=== PATIENT | male | born 1945 | race Caucasian/White ===

== ENCOUNTER 2021-08-12 08:49 | Outpatient (REF) | payer MEDICARE, SELFPAY | END 2021-08-12 08:50 | disposition home or self-care (01) | LOC: HO.BBR 08:49 | PROVIDERS: Visit Provider Internal Medicine | DX: D45 Polycythemia vera (principal) | CPT/HCPCS: 85018; 99195 ==

== ENCOUNTER 2022-02-10 09:33 | Outpatient (REF) | payer MEDICARE, SELFPAY | END 2022-02-10 09:34 | disposition home or self-care (01) | LOC: HO.BBR 09:33 | PROVIDERS: Visit Provider Internal Medicine | DX: D45 Polycythemia vera (principal) | CPT/HCPCS: 85014; 85018; 99195 ==

== ENCOUNTER 2023-03-20 09:52 | Outpatient (REF) | payer MEDICARE, SELFPAY | END 2023-03-20 09:53 | disposition home or self-care (01) | LOC: HO.BBR 09:52 | PROVIDERS: Visit Provider Internal Medicine | DX: D75.1 Secondary polycythemia (principal) | CPT/HCPCS: 85014; 85018; 99195 ==

== ENCOUNTER 2024-01-11 10:55 | Outpatient (REF) | payer MEDICARE, SELFPAY | END 2024-01-11 10:56 | disposition home or self-care (01) | LOC: HO.BBR 10:55 | PROVIDERS: Visit Provider Internal Medicine | DX: D75.1 Secondary polycythemia (principal) | CPT/HCPCS: 85018; 99195 ==

== ENCOUNTER 2024-07-16 10:59 | Outpatient (REF) | payer MEDICARE, SELFPAY | END 2024-07-16 11:00 | disposition home or self-care (01) | LOC: HO.BBR 10:59 | PROVIDERS: Visit Provider Internal Medicine | DX: D75.1 Secondary polycythemia (principal) | CPT/HCPCS: 85014; 85018; 99195 ==

== ENCOUNTER 2025-01-14 10:47 | Outpatient (REF) | payer MEDICARE, SELFPAY ==
--- OUTSIDE RECORDS SUMMARY | 2025-01-14 12:12 | XMS_ITS | Clinical Summary ---
Author Organization [facility] Address [address] [place] [address] Phone Care Team Providers Care Sprayer Machine Name Role Phone Allie South MD Primary Care Provider Allergies No known active allergies Medications cholecalcifero l (VITAMIN D-3) 50 mcg (2,000 unit) tablet Take?by mouth. 3,000 units Active finasteride (PROSCAR) 5 mg tablet Take 1 Tablet by mouth daily. 3 Active furosemide (LASIX) 20 mg tablet Take 1 Tablet by mouth as needed (for weight gain and sob). PRN 3 Active metoprolol succinate (TOPROL-XL) 100 mg 24 hr tablet Take 1 tablet (100 mg total) by mouth 1 (one) time each day. 90 tablet 1 4 Active alendronate (FOSAMAX) 70 mg tablet Take 1 tablet (70 mg total) by mouth every 7 (seven) days. TAKE ONE TABLET BY MOUTH EVERY 7 DAYS 12 each 1 4 Active Jantoven 5 mg tablet TAKE ONE TABLET BY MOUTH ONCE DAILY . MAY CAUSE HEAVY BLEEDING, TAKE AT SAME TIME EVERY DAY, DO NOT CHANGE DIETARY HABITSTAKE ONE TABLET BY MOUTH ONCE DAILY . MAY CAUSE HEAVY BLEEDING, TAKE AT SAME TIME EVERY DAY, DO NOT CHANGE DIETARY HABITS 90 tablet 1 4 Active albuterol HFA (ProAir HFA) 90 mcg/actuation inhaler Inhale 2 puffs by mouth every 4 (four) hours if needed for wheezing or shortness of breath. 8.5 g 1 4 Active fluticasone-um eclidinium-norman anterol (Trelegy Ellipta) 100-62.5-25 mcg inhaler Inhale 1 puff (100 mcg total) by mouth 1 (one) time each day. Rinse mouth with water after use to reduce aftertaste and incidence of candidiasis. Do not swallow. 1 each 12 4 08/14/20 25 Active lisinopriL (PRINIVIL,ZEST RIL) 20 mg tablet Take 1 tablet (20 mg total) by mouth 1 (one) time each day. Take 1 Tablet by mouth daily. 90 tablet 5 Active lisinopriL (PRINIVIL,ZEST RIL) 20 mg tablet Take 1 Tablet by mouth daily. 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 Started on nocturnal O2 in 02/2021 by Osteoporosis 12/27/2016 Overview (05/27/2024): Hip on bone density. Cardiomyopathy ([facility] V24, [facility] V28) 2016 Overview (05/27/2024): Last Assessment & Plan: Left ventricular ejection fraction is normal. Continue metoprolol and lisinopril. Heart failure with reduced e jection fraction, NYHA class II ([facility] V24, [facility] V28) 11/22/2016 Overview (05/27/2024): Stress perfusion test 08/2012 with EF 45% and nl perfusion Mild mitral regurgitation 11/17/2016 Overview (05/27/2024): On echo 10/27/2016 Compression fracture of L1 l umbar vertebra (CMS/HCC V24, CMS/HCC V28) 10/19/2016 Overview (05/27/2024): Post fall, 10/2016 Atrial fibrillation (CMS/HCC V24, CMS/HCC V28) 0 09/29/2016 Overview (05/27/2024): Last Assessment & Plan: Chronic A-fib, rate controlled on metoprolol, continue. Continue anticoagulation with warfarin with goal INR between 2 and 3. The risks and benefits of anticoagulation therapy have been reviewed. They verbalized understanding agree to continue. Hypertension 09/03/2012 Overview (05/27/2024): 08/2012 [facility] admission for hypertensive emergency, Nuclear Med stress test with exercise: LVEF 45%, no fixed or reversible ischemia. Max exercise 5.7 METS for 3.58 min. Repeat outpt echo 09/2012 shows normal systolic and diastolic function, trace TR 08/2012 [facility] admission for hypertensive emergency, Nuclear Med stress test with exercise: LVEF 45%, no fixed or reversible ischemia. Max exercise 5.7 METS for 3.58 min. Repeat outpt echo 09/2012 shows normal systolic and diastolic function, trace TR Encounters Date Type Department Care Team Description 01/01/2025 Anticoagulation - Warfarin Visit [facility] Clinic - [address] [phone] Allyssa Card LPN Longstanding persistent atrial fibrillation (CMS/HCC V24, CMS/HCC V28) (Primary Dx); ring sewer (current) use of anticoagulants 12/04/2024 Anticoagulation - Warfarin Visit Coumadin [address] [phone] Allyssa Card LPN Longstanding persistent atrial fibrillation (CMS/HCC V24, CMS/HCC V28) (Primary Dx); ring sewer (current) use of anticoagulants 11/07/2024 Anticoagulation - Warfarin Visit [facility] Clinic [address] [place] [phone] Allyssa Card LPN Longstanding persistent atrial fibrillation (CMS/HCC V24, CMS/HCC V28) (Primary Dx); ring sewer (current) use of anticoagulants from Last 3 Months Immunizations Name Administration Dates Next Due Pfizer SARS-CoV-2 COVID-19, mRNA, LNP-S, preservative free 11/12/2020,10/21/2020 Pneumococcal conjugate 20 va lent (Prevnar 20, PCV 20) 2mo and older 08/14/2024 Social History Tobacco Use Types Packs/Day Years Used Date Smoking Tobacco: Former Smokeless Tobacco: Never Alcohol Use Standard Drinks/Week Comments Yes 0 (1 standard drink = 0.6 oz pur e alcohol) Sex and Gender Information Value Date Recorded Sex Assigned at Not on file Legal Sex Male 1:43 PM EST Gender Identity Not on file Sexual Orientation Not on file Obstetrics History Last Filed Vital Signs Vital Sign Reading Time Taken Comments Blood Pressure 136/68 09/26/2024 9:34 AM EST Pulse 90 09/26/2024 9:34 AM EST Temperature 36.2 ??C (97.2 ??F) 09/26/2024 9:34 AM ES T Respiratory Rate 20 09/26/2024 9:34 AM EST Oxygen Saturation 95% 09/26/2024 9:34 AM EST Inhaled Oxygen Concentration - - Weight 94 kg (207 lb 3.2 oz) 09/26/2024 9:34 AM EST Height 177.8 cm (5' 10 ) 09/26/2024 9:34 AM EST Body Mass Index 29.73 09/26/2024 9:34 AM EST Plan of Treatment Upcoming Encounters Date Type Department Care Team (Late st Contact Info) Description 02/17/2025 2:00 PM EDT Office Visit Adult Medicine - [place] [address] [place] [phone] Allie South MD [address] [place], [place] 02/20/2025 10:30 AM EDT Office Visit [facility] Hematology Oncology [address] [place] [phone] Neela Jimenez MD [address] [place] [address] 03/27/2025 10:30 AM EDT Office Visit Pulmonolgy - [place] [address] [facility] [address] [place] [phone] Anil Laughlin MD [address] [facility] [address] [place] [address] Health Maintenance Due Date Last Done Comments Zoster Vaccines (1 of 2) 1964 RSV Immunization Adult Patients (1 - 1-dose 75+ series) 2022 Cholesterol Screening (Lipid Panel) 08/13/2022 Colorectal Cancer Screening: Stool Based Tests (FOBT/FIT) 08/13/2022 Depression Screening 08/13/2022 Falls Risk Assessment 08/13/2022 Hepatitis C Screening 08/13/2022 Medicare Annual Wellness Visit 08/13/2022 Social Influencers of Health Screening 08/13/2022 Hypertension/CHF/CAD Annual BMP Blood Test 08/14/2022 COVID-19 Vaccine (7 - Pfizer risk 2023- season) 2024 06/26/2024, 07/31/2023, 07/02/2022, Additional history exists Lung Cancer Screening (Low Dose CT) 03/15/2025 03/15/2024, 03/13/2024, 03/13/2023, Additional history exists DTaP,Tdap,and Td Vaccines (3 - Td or Tdap) 08/21/2033 08/21/2023, 05/28/2013 Influenza Vaccine Completed 06/26/2024, , 06/23/2022, Additional history exists Pneumococcal Vaccine: 50+ Years Completed 08/14/2024, 02/17/2017, 06/03/2013, Additional history exists HIB Vaccines Aged Out No longer eligi ble based on patient's age to complete this topic HPV Vaccines Aged Out No longer eligi ble based on patient's age to complete this topic Hepatitis A Vaccines Aged Out No long er eligible based on patient's age to complete this topic Hepatitis B Vaccines Aged Out No long er eligible based on patient's age to complete this topic IPV Vaccines Aged Out No longer eligi ble based on patient's age to complete this topic MMR Vaccines Aged Out No longer eligi ble based on patient's age to complete this topic Meningococcal ACWY Vaccine Aged Out N o longer eligible based on patient's age to complete this topic Meningococcal B Vaccine Aged Out No l onger eligible based on patient's age to complete this topic RSV Immunization Patients Under 20 months Aged Out No longer eligible based on patient's age to complete this topic Varicella Vaccines Aged Out No longer eligible based on patient's age to complete this topic Procedures Procedure Name Priority Date/Time Associated Diagnosis Comments PROTHROMBIN TIME WITH INR Routine 01/01/2025 1:11 PM EDT Longstanding persistent atrial fibrillation (CMS/HCC V24, CMS/HCC V28) ring sewer (current) use of anticoagulants PROTHROMBIN TIME WITH INR Routine 12/04/2024 12:57 PM EDT Encounter for therapeutic drug monitoring shelter (current) use of anticoagulants Atrial fibrillation (CMS/HCC V24, CMS/HCC V28) PROTHROMBIN TIME WITH INR Routine 11/06/2024 12:52 PM EST Encounter for therapeutic drug monitoring shelter (current) use of anticoagulants Atrial fibrillation (CMS/HCC V24, CMS/HCC V28) CT LUNG SCREENING LOW DOSE Routine 03/15/2024 3:59 PM EDT Encounter for screening for malignant neoplasm of respiratory organs from Last 3 Months or Most Recently Relevant to Health Maintenance Results * (ABNORMAL) Prothrombin time with INR (01/01/2025 1:11 PM EDT) Only the most recent of3 resultswithin the time period is included. Protime 26.8(H) 10.6 - 13.9 sec LAB COAGULATION METHOD 01/01/2025 2:32 PM EDT [facility] INR 2.2 LAB COAGULATION METHOD 01/01/2025 2:32 PM EDT [facility] Blood Venous blood specimen / Unknown Venipuncture / Unknown 01/01/2025 1:11 PM EDT 01/01/2025 1:11 PM EDT Allie South MD LAB BLOOD ORDERABLES F inal Result [facility] [address] [place] [address], * CT LUNG SCREENING LOW DOSE (03/15/2024 3:59 PM EDT) Anatomical Region Laterality Modality Computed Tomogra phy 03/13/2024 9:09 AM EDT Narrative 03/15/2024 3:59 PM EDT [facility] Diagnostic Imaging Department [address] [place] [address] Patient: ??OLIVIERBENY ?/Age/Sex: 1945 - 78 - M Unit#: ??[id number] ? Location/Status: ??SPDICATLS/REG CLI ? Mnemonic/Ordering Site: ??CTLUNGLD/SPCT Ordering Physician: ??STEFAN DOMÍNGUEZ MD CT Lung Screening Low Dose - 03/13/24912 Report Status:Signed History: ??78 year-old 77 pack-year former smoker, asymptomatic, for lung cancer screening. Quit smoking 13 years ago. Known coronary artery disease. Comparison: 03/09/23 Technique: Helical volumetric imaging of the thorax was performed, using low- dose technique, without IV contrast. DLP: 177.93 mGy/cm ??CTDIvol: 4.83 mGy [place] VCT Iterative reconstruction technique Findings: Lungs and Airways: The trachea and central bronchial tree remain patent. Saber- sheath configuration to the trachea is again noted. Diffuse bronchial wall thickening is consistent with bronchitis in this setting. Minimal peripheral mucous plugging is seen in the superior segment of the left lower lobe. Severe emphysematous destruction of the pulmonary parenchyma is again seen. Mild reticulation is seen in the subpleural lung bilaterally, favoring the lung bases, consistent with fibrosis, unchanged. A 4 x 5 mm juxtapleural right upper lobe nodule (image 89 series 3) is without definite change. No suspicious developing pulmonary nodule is seen. Pleura: No pleural or pericardial effusions are seen. Base of neck, mediastinum and heart: Mild multichamber cardiomegaly is noted. There is three-vessel coronary artery calcification. No developing thoracic lymphadenopathy is seen. Soft tissues: The overlying soft tissues are unremarkable. Abdomen: This study was performed without contrast and with lower than standard dose. These factors reduce the sensitivity for detection of small lesions in the upper abdomen. A 3.5 cm hepatic cyst is again noted. A 1 cm peripherally calcified nodule is partially imaged at the upper pole the right kidney, also visible previously. A mild, chronic compression fracture of an upper lumbar vertebral body is unchanged, without retropulsion. Impression: No suspicious developing pulmonary nodule is seen. Continued annual low-dose screening is recommended. Lung RADS 2: Benign Appearance or Behavior - Continue annual screening with LDCT in 12 months. [id number] [id number] Dictating Physician: ??EMILIANA BUCHANAN MD Electronically Signed by: ??EMILIANA BUCHANAN MD Dic Date/Time: ??03/15/24 1546 Sign date/Time: ??03/15/24 1559 Procedure Note Emiliana Buchanan MD - 06/19/2024 [facility] Diagnostic Imaging Department [address] [place] [id number] Patient: BENY AGUAYO /Age/Sex: 1945 - 78 - M Unit#: [id number] Location/Status: SPDICATLS/REG CLI Mnemonic/Ordering Site: CTLUNG/SPCT Ordering Physician: STEFAN DOMÍNGUEZ MD CT Lung Screening Low Dose - 03/13/24912 Report Status:Signed History: 78 year-old 77 pack-year former smoker, asymptomatic, for lungcancer screening. Quit smoking 13 years ago. Known coronary artery disease. Comparison: 03/09/23 Technique: Helical volumetric imaging of the thorax was performed, usinglow- dose technique, without IV contrast. DLP: 177.93 mGy/cm CTDIvol: 4.83 mGy [place] VCT Iterative reconstruction technique Findings: Lungs and Airways: The trachea and central bronchial tree remain patent.Saber- sheath configuration to the trachea is again noted. Diffuse bronchialwall thickening is consistent with bronchitis in this setting. Minimalperipheral mucous plugging is seen in the superior segment of the left lower lobe.Severe emphysematous destruction of the pulmonary parenchyma is again seen. Mild reticulation is seen in the subpleural lung bilaterally, favoring thelung bases, consistent with fibrosis, unchanged. A 4 x 5 mm juxtapleural right upper lobe nodule (image 89 series 3) iswithout definite change. No suspicious developing pulmonary nodule is seen. Pleura: No pleural or pericardial effusions are seen. Base of neck, mediastinum and heart: Mild multichamber cardiomegaly isnoted. There is three-vessel coronary artery calcification. No developingthoracic lymphadenopathy is seen. Soft tissues: The overlying soft tissues are unremarkable. Abdomen: This study was performed without contrast and with lower thanstandard dose. These factors reduce the sensitivity for detection of small lesionsin the upper abdomen. A 3.5 cm hepatic cyst is again noted. A 1 cm peripherally calcified nodule is partially imaged at the upper pole the right kidney,also visible previously. A mild, chronic compression fracture of an upper lumbar vertebral bodyis unchanged, without retropulsion. Impression: No suspicious developing pulmonary nodule is seen. Continued annuallow-dose screening is recommended. Lung RADS 2: Benign Appearance or Behavior - Continue annual screeningwith LDCT in 12 months. [id number] [id number] Dictating Physician: EMILIANA BUCHANAN MD Electronically Signed by: EMILIANA BUCHANAN MD Dic Date/Time: 03/15/24 1546 Sign date/Time: 03/15/24 1557 Stefan Domínguez MD IMG CT PROCEDURES Final Result from Last 3 Months or Most Recently Relevant to Health Maintenance Insurance MEDICARE [facility] Care Teams Sprayer Machine Relationship Specialty Start Date End Date Allie South MD [address] [place] [id number] PCP - General Internal Medicine 10/01/21
--- OUTSIDE RECORDS SUMMARY | 2025-01-14 12:12 | XMS_ITS | Clinical Summary ---
Author Organization [facility] Address [address] [facility] [address] [place] [address] Phone Care Team Providers Care Landscape Architect And Planner Name Role Phone Allie South MD Primary Care Provider [phone] Allergies No known active allergies Medications alendronate (FOSAMAX) 70 MG tablet Take 1 tablet by mouth 1 (one) time per week Active budesonide-form oterol (SYMBICORT) 80-4.5 MCG/ACT inhaler Active cholecalciferol (VITAMIN D-3 SUPER STRENGTH) 50 MCG (1999 UT) tablet Take 1.5 tablets by mouth 1 (one) time each day Active metoprolol succinate XL (TOPROL-XL) 100 MG 24 hr tablet Take 1 tablet by mouth 1 (one) time each day Active Jantoven 5 MG tablet Take 1 tablet by mouth 1 (one) time each day 1 Active Trelegy Ellipta 100-62.5-25 MCG/INH aerosol powder INHALE ONE PUFF BY MOUTH EVERY DAY 1 Active oxygen (O2) gas Inhale every night via nasal canula Active lisinopril 20 MG tablet TAKE ONE TABLET BY MOUTH EVERY DAY 90 tablet 4 3 Active Additional Information Patient taking differently: 20 mg Oral Daily, Reported on 11/14/2022 finasteride (PROSCAR) 5 MG tablet Take 5 mg by mouth 1 (one) time each day 3 Active furosemide (LASIX) 20 MG tablet Take 20 mg by mouth if needed 2 Active Active Problems Problem Noted Date Diagnosed Date Renal calculus 11/14/2022 Benign prostatic hyperplasia without lower urinary tract symptom 09/09/2022 Benign essential hypertension 04/12/2021 Stage 3a chronic kidney disease 04/12/2021 Hypertensive heart and renal disease with (congestive) heart failure 04/12/2021 Hypertension 04/12/2021 Hypertensive disorder 09/03/2012 Overview (04/12/2021): 08/2012 [facility] admission for hypertensive emergency, Nuclear Med stress test with exercise: LVEF 45%, no fixed or reversible ischemia. Max exercise 5.7 METS for 3.58 min. 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 Cardiomyopathy 11/22/2016 04/12/2021 Heart failure 11/22/2016 04/12/2021 Overview (04/12/2021): Stress perfusion test 08/2012 with EF 45% and nl perfusion Mild mitral valve regurgitation 11/17/2016 04/12/2021 Overview (04/12/2021): On echo 10/27/2016 Compression fracture of lumbar spine 10/19/2016 04/12/2021 Overview (04/12/2021): Post fall, 10/2016 Atrial fibrillation 09/29/2016 04/12/20 Long-term current use of anticoagulant 09/29/2016 04/12/2021 Personal history of tobacco use 05/28/2013 04/12/2021 Overview (04/12/2021): Quit 08/2012 Immunizations Immunization Administration Dates Next Due Influenza Split High Dose Pr eservative Free IM 06/23/2022,05/27/2021,05/29/2020,06/12,06/18/2018,06/19/2014,05/28/2013 Influenza TIV (IM) 05/28/2013 Pfizer SARS-COV-2 06/17/2021,11/12/2020,10/21/19 21 Pneumococcal Conjugate 13-Valent 02/17/2017 Pneumococcal Polysaccharide 06/03/2013, 3 Tdap 05/28/2013 Family History Medical History Relation Comments Heart disease Father Cancer Mother Relation Status Comments Father Mother Social History Tobacco Use Types Packs/Day Years Used Date Smoking Tobacco: Never Smokeless Tobacco: Never Tobacco Cessation:Counseling Given: Not Answered Alcohol Use Standard Drinks/Week Comments Yes 0 (1 standard drink = 0.6 oz pure alcohol) Alcoholic Drinks/day: 1-2 drinks per day Sex and Gender Information Value Date Recorded Sex Assigned at Not on file Legal Sex Male 5:07 PM EST Gender Identity Not on file Sexual Orientation Not on file Last Filed Vital Signs Vital Sign Reading Time Taken Comments Blood Pressure 130/80 11/14/2022 1:40 PM EDT Pulse 84 11/14/2022 1:40 PM EDT Temperature - - Respiratory Rate - - Oxygen Saturation 96% 04/12/2021 2:39 PM EDT Inhaled Oxygen Concentration - - Weight 92.6 kg (204 lb 3.2 oz) 11/14/2022 1:40 P M EDT Height 177.8 cm (5' 10 ) 10/06/2020 12:00 PM EST Body Mass Index 29.3 10/06/2020 12:00 PM EST Plan of Treatment Health Maintenance Due Date Last Done Comments Influenza Vaccine (Season Ended) 2025 06/23/2022, 05/27/2021, 05/29/2020, Additional history exists Pneumococcal Vaccine: 50+ Years Completed 02/17/2017, 06/03/2013, 11/02/2012 Pneumococcal Vaccine: Peds (0 to 5 Years) and At-Risk Patients (6 to 49 Years) Discontinued 02/17/2017, 06/03/2013, 11/02/2012 Hepatitis B Vaccine Aged Out No longe r eligible based on patient's age to complete this topic [place] [place] [address] Medicare [facility] Medicare Care Teams Landscape Architect And Planner Relationship Specialty Start Date End Date Allie South MD PCP - General Family Medicine 10/21/21
== END 2025-01-14 10:48 | disposition home or self-care (01) ==
LOC: HO.BBR 10:47
PROVIDERS: PCP Family Medicine; Visit Provider Internal Medicine
DX: D45 Polycythemia vera (principal)
CPT/HCPCS: 85014; 85018; 99195